=== PATIENT | female | born 1980 | race Asian ===

== ENCOUNTER 2020-01-13 12:41 | Inpatient (IN) | payer MEDICAID ==
[~2020-01-13] VITALS: Ht 149.9 cm; Wt 47.1 kg
[2020-01-13] MEDS ORDERED: SODIUM CHLORIDE 0.9% 1,000 ML IV ONE ×2 (16:15→17:30)
[2020-01-13 16:48] LABS: BASOPHILS % (AUTO) 1.1 % (0.0-2.0); EOSINOPHILS % (AUTO) 0.3 % (1.0-6.0); HEMATOCRIT 44.5 % (36-46); HEMOGLOBIN 14.3 g/dL (12.0-16.0); LYMPHOCYTES # (AUTO) 2.6 K/uL (1.0-4.8); LYMPHOCYTES % (AUTO) 27.8 % (22.0-44.0); MEAN CORPUSCULAR HEMOGLOBIN 27.1 pg (26.0-34.0); MEAN CORPUSCULAR HGB CONC 32.2 G/dL (31.0-37.0); MEAN CORPUSCULAR VOLUME 84 fL (80-100); MONOCYTES # (AUTO) 0.5 K/uL (0.1-1.0); MONOCYTES % (AUTO) 5.5 % (2.0-9.0); NEUTROPHILS # (AUTO) 6.2 K/uL (1.8-7.7); NEUTROPHILS % (AUTO) 65.3 % (40.0-70.0); PLATELET COUNT (AUTO) 449 K/uL (150-450); RED CELL DISTRIBUTION WIDTH 15.3 % (11.5-14.5)
[2020-01-13 16:55] LABS: APPEARANCE,URINE CLOUDY (CLEAR); GLUCOSE, URINE (UA) NEGATIVE (NEGATIVE); KETONES,URINE >=80 mg/dL (NEGATIVE); LEUKOCYTE ESTERASE ,URINE MODERATE (NEGATIVE); NITRATE,URINE NEGATIVE (NEGATIVE); OCCULT BLOOD,URINE NEGATIVE (NEGATIVE); PROTEIN,URINE POS 1+ (NEGATIVE)
[2020-01-13] MEDS ORDERED: ONDANSETRON HCL 4 MG/2 ML VIAL IVP ONE (17:00)
[2020-01-13 17:01] LABS: AMPHET/METH SCREEN,URINE NEGATIVE (NEGATIVE); BARBITURATE SCREEN, URINE NEGATIVE (NEGATIVE); BENZODIAZEPINES SCREEN,URINE NEGATIVE (NEGATIVE); CANNABINOID SCREEN,URINE NEGATIVE (NEGATIVE); COCAINE SCREEN,URINE NEGATIVE (NEGATIVE); METHADONE SCREEN, URINE NEGATIVE (NEGATIVE); OPIATE SCREEN,URINE NEGATIVE (NEGATIVE)
[2020-01-13 17:06] LABS: PHENCYCLIDINE SCREEN,URINE NEGATIVE (NEGATIVE)
[2020-01-13 17:14] LABS: ALANINE AMINOTRANSFERASE 65 U/L (12-78); ALKALINE PHOSPHATASE 82 U/L (46-116); ANION GAP 22 mmol/L (8-16); ASPARTATE AMINOTRANSFERASE 66 U/L (15-37); BILIRUBIN,TOTAL 1.1 mg/dL (0.1-1.0); CALCIUM, TOTAL 9.7 mg/dL (8.8-10.5); CARBON DIOXIDE 22 mmol/L (22-29); CHLORIDE 92 mmol/L (98-107); CREATINE KINASE, TOTAL ONLY 51 U/L (26-192); CREATININE 1.09 mg/dL (0.60-1.30); GLOMERULAR FILTR. RATE CALC 56 mL/min (>60); GLUCOSE,RANDOM 81 mg/dL (70-110); HCG,QUANTITATIVE < 1 mIU/mL (0-6); LIPASE 216 U/L (73-393); SODIUM SERUM 136 mmol/L (136-145); THYROID STIMULATING HORMONE 1.11 uIU/mL (0.36-3.74); TOTAL PROTEIN, SERUM 9.2 g/dL (6.4-8.2); UREA NITROGEN, BLOOD 11 mg/dL (7-18)
[2020-01-13 17:21] LABS: POTASSIUM 2.8 mmol/L (3.5-5.1)
[2020-01-13 17:22] LABS: LACTIC ACID 2.4 mmol/L (0.4-2.0)
[2020-01-13] MEDS ORDERED: POTASSIUM CHLORIDE 20 MEQ ER TABLET PO ONE (17:30)
[2020-01-13] MEDS: POTASSIUM CHL 10 MEQ/WATER 50 ML IV PRN ×4 (17:38→21:51)
[2020-01-13 17:43] LABS: BILIRUBIN,URINE PRELIM. POSITIVE (NEGATIVE)
[2020-01-13 17:55] LABS: RBC,URINE None Seen /HPF (0-2)
[2020-01-13 17:56] LABS: BACTERIA,URINE Moderate /HPF (None Seen); SQUAMOUS EPITHELIAL CELL,UR Moderate /LPF (None Seen)
[2020-01-13] MEDS ORDERED: CEPHALEXIN MONOHYDRATE 500 MG CAPSULE PO ONE (20:30)
[2020-01-14] MEDS ORDERED: LORazepam 2 MG TABLET PO PRN
[2020-01-14] MEDS ORDERED: ZOLPIDEM TARTRATE 10 MG TABLET PO PRN
[2020-01-14] MEDS ORDERED: HALOPERIDOL 5 MG TABLET PO PRN
[2020-01-14 01:25] VITALS: BP 108/69
[2020-01-14] MEDS ORDERED: POTASSIUM CHLORIDE 20 MEQ ER TABLET PO ONE (07:00)
[2020-01-14] MEDS: CEPHALEXIN MONOHYDRATE 500 MG CAPSULE PO SCH ×3 (08:12→16:02)
[2020-01-14 08:38] LABS: CHOL/HDL RATIO 3.3 (3.9-5.7)
[2020-01-14 09:05] VITALS: BP 101/58
[2020-01-14] MEDS ORDERED: ALBUTEROL SULFATE HFA 90 MCG/PUFF 8 GM INHALER IH PRN (10:30)
[2020-01-14] MEDS ORDERED: LOPERAMIDE HCL 2 MG CAPSULE PO PRN (10:30)
[2020-01-14] MEDS ORDERED: PETROLATUM,WHITE 28 GM JELLY TP PRN (10:30)
[2020-01-14] MEDS ORDERED: CloNIDine HCL 0.1 MG TABLET PO PRN (10:30)
[2020-01-14] MEDS ORDERED: NICOTINE 14 MG/24 HOUR PATCH TD PRN (10:30)
[2020-01-14] MEDS ORDERED: GuaiFENesin/D-METHORPHAN [SUGAR-FREE] 200-20MG/10 ML SYRUP UDCUP PO PRN (10:30)
[2020-01-14] MEDS ORDERED: MAGNESIUM HYDROXIDE SUSPENSION 30 ML UDCUP PO PRN (10:30)
[2020-01-14] MEDS ORDERED: DOCUSATE SODIUM 100 MG CAPSULE PO PRN (10:30)
[2020-01-14] MEDS ORDERED: MAG HYDROX/AL HYDROX/SIMETH ES 30 ML SUSPENSION UDCUP PO PRN (10:30)
[2020-01-14] MEDS ORDERED: ACETAMINOPHEN 325 MG TABLET PO PRN (10:30)
[2020-01-14] MEDS ORDERED: ONDANSETRON HCL 4 MG TABLET PO PRN (10:30)
[2020-01-14] MEDS ORDERED: IBUPROFEN 400 MG TABLET PO PRN (10:30)
[2020-01-14] MEDS: ARIPiprazole 5 MG TABLET PO SCH (11:00)
[2020-01-14 18:45] VITALS: BP 101/60
[2020-01-15 03:16] VITALS: BP 89/58
[2020-01-15] MEDS: ARIPiprazole 5 MG TABLET PO SCH ×2 (08:15→09:00)
[2020-01-15] MEDS: CEPHALEXIN MONOHYDRATE 500 MG CAPSULE PO SCH ×3 (08:15→16:34)
[2020-01-15 08:41] VITALS: BP 98/70
[2020-01-15 18:08] VITALS: BP 100/66
[2020-01-16] MEDS: CEPHALEXIN MONOHYDRATE 500 MG CAPSULE PO SCH ×3 (08:15→17:19)
[2020-01-16 08:27] VITALS: BP 100/67
[2020-01-16] MEDS: ARIPiprazole 5 MG TABLET PO SCH (09:00)
[2020-01-16] MEDS ORDERED: ARIP5TAB8 PO (15:36)
[2020-01-16] MEDS ORDERED: POTASSIUM CHLORIDE 10% 40 MEQ/30 ML LIQUID UDCUP PO ONE (17:00)
[2020-01-16] MEDS ORDERED: CEPH-582 PO (17:28)
== END 2020-01-16 18:35 | disposition home or self-care (01) | DRG 885 ==
LOC: EMS 12:45 → 3EI 23:58
DX: F29 Unspecified psychosis not due to a substance or known physiological condition (principal); N39.0 Urinary tract infection, site not specified; E87.2 Acidosis; E87.6 Hypokalemia; E86.0 Dehydration; Z79.899 Other long term (current) drug therapy; I10 Essential (primary) hypertension; I95.9 Hypotension, unspecified; R74.0 Nonspecific elevation of levels of transaminase and lactic acid dehydrogenase [LDH]
CPT/HCPCS: 83605; 84132; 84439; 84443; 87086; 99291; G0480; J2405; J3480; J7030